=== PATIENT | male | born 1940 | race Caucasian/White ===

== ENCOUNTER → 2016-11-18 | Outpatient (CLI) | payer OTHER, MEDICARE | LOC: BHFA 13:00 | PROVIDERS: ATTEND Internal Medicine | DX: R55 Syncope and collapse (principal) ==

== ENCOUNTER → 2016-11-24 | Outpatient (CLI) | payer OTHER, MEDICARE | LOC: BHFA 15:45 | PROVIDERS: ATTEND Internal Medicine Cardiovascular Disease | DX: I48.91 Unspecified atrial fibrillation (principal); F09 Unspecified mental disorder due to known physiological condition; F07.89 Other personality and behavioral disorders due to known physiological condition; E78.5 Hyperlipidemia, unspecified; G47.30 Sleep apnea, unspecified; E11.9 Type 2 diabetes mellitus without complications ==

== ENCOUNTER → 2016-11-25 | Outpatient (CLI) | payer OTHER, MEDICARE | LOC: BHFA 14:00 | PROVIDERS: ATTEND Internal Medicine Interventional Cardiology | DX: R01.1 Cardiac murmur, unspecified (principal); R55 Syncope and collapse ==

== ENCOUNTER 2016-12-04 07:47 | Day surgery (SDC) | payer OTHER, MEDICARE ==
[2016-12-04] MEDS ORDERED: LIDOCAINE 1% 30 ML SDV MISC ONE (09:00)
--- NOTE | 2016-12-04 09:36 | SUROPNOTE ---
[facility] Operative Report - Surgery PROCEDURE: Linq implant INDICATION: Near syncope and pAF PROCEDURE DETAILS: Patient was prepped and draped in the usual sterile fashion. was present for the discussion. Consents were signed. Lidocaine was used for local anesthetic to the 2/3rd intercostal space on the left side. A small incision was made with a #12 blade, and the provided blade was used for breadth and depth. The LINQ device (SN: [id number]) was implanted without difficulty. Waveform assessment was undertaken, and good PQRST waves were noted. Patient without complaints. Minimal bleeding was noted from the site immediately following the implant (patient is therapeutic on coumadin for pAF history). Three marshall were placed to close the pocket, and will need removal in 3-5 days. Patient to have follow up on the site in 3-5 days. Instructions for data acquisition were provided to patient and .
== END 2016-12-04 09:39 | disposition home or self-care (01) ==
LOC: FCATH 07:47
PROVIDERS: ATTEND Internal Medicine Cardiovascular Disease
PROC: 0JH63PZ Insertion of Cardiac Rhythm Related Device into Chest Subcutaneous Tissue and Fascia, Percutaneous Approach (ICD-10-PCS; principal; 2016-12-04)
DX: R55 Syncope and collapse (principal); I48.91 Unspecified atrial fibrillation; I10 Essential (primary) hypertension; E11.9 Type 2 diabetes mellitus without complications; E78.5 Hyperlipidemia, unspecified
CPT/HCPCS: C1764

== ENCOUNTER → 2017-01-14 | Outpatient (CLI) | payer OTHER, MEDICARE | LOC: BHFA 11:00 | PROVIDERS: ATTEND Internal Medicine Cardiovascular Disease | DX: I48.91 Unspecified atrial fibrillation (principal) ==

== ENCOUNTER → 2017-02-04 | Outpatient (CLI) | payer OTHER, MEDICARE | LOC: BHFA 11:30 | PROVIDERS: ATTEND Internal Medicine Cardiovascular Disease | DX: I48.91 Unspecified atrial fibrillation (principal) ==

== ENCOUNTER 2017-02-18 11:37 | Observation (INO) | payer OTHER, MEDICARE ==
[2017-02-18] MEDS ORDERED: BACITRACIN IRRIGATION/NS 50,000 UNITS/1,000 ML BTL IRR ONE (12:21)
[2017-02-18] MEDS ORDERED: NS 1,000 ML IV ONE (12:21)
[2017-02-18] MEDS ORDERED: DIAZEPAM 5 MG TAB PO ONE (12:21)
[2017-02-18] MEDS ORDERED: diphenhydrAMINE 25 MG CAP PO ONE (12:21)
--- NOTE | 2017-02-18 12:51 | CPEKG ---
Heart Rate: 50 RR Interval: 1200 P-R Interval: 200 QRSD Interval: 162 QT Interval: 500 QTC Interval: 456 P [place]: 22 QRS [place]: -75 T Wave [place]: -21 EKG Severity - ABNORMAL ECG - EKG Impression: SINUS RHYTHM EKG Impression: RBBB AND LAFB EKG Impression: PROBABLE LEFT VENTRICULAR HYPERTROPHY Electronically Signed By: Stephen Ceballos 19-Feb-2017 10:13:54
[2017-02-18 13:23] LABS: % IMMATURE GRANULYOCYTES 0.2 % (0.0-1.1); ABSOLUTE IMMATURE GRANULOCYTES 0.01 10^3/uL (0.00-0.10); ADD DIFF? NO; ADD MORPH? NO; ADD SCAN? NO; ATYPICAL LYMPHOCYTE FLAG 0 (0-99); FRAGMENT RBC FLAG 0 (0-99); HEMATOCRIT 43.9 % (40.0-51.0); HEMOGLOBIN 14.5 g/dL (13.7-17.5); LEFT SHIFT FLG 0 (0-99); LIPEMIA HEMOLYSIS FLAG 80 (0-99); MEAN CELL HEMOGLOBIN 27.6 pg (27.9-34.1); MEAN CELL VOLUME 83.5 fL (81.5-99.8); PLATELET CLUMPS FLAG 0 (0-99); PLATELET COUNT 159 10^3/uL (150-400); RED BLOOD CELL COUNT 5.26 10^6/uL (4.40-6.38)
[2017-02-18 13:32] LABS: INR 1.25 (0.83-1.16); PROTIME(PATIENT) 15.7 SEC (12.0-15.0)
[2017-02-18 13:42] LABS: ANION GAP 12 mEq/L (8-16); CALCIUM 10.2 mg/dL (8.5-10.4); CARBON DIOXIDE 29 mEq/l (22-31); CHLORIDE 104 mEq/L (97-110); CREATININE 1.2 mg/dL (0.7-1.3); GLOMERULAR FILTRATION RATE 59; GLUCOSE 107 mg/dL (70-100); POTASSIUM 4.2 mEq/L (3.5-5.2); SODIUM 145 mEq/L (134-144)
[2017-02-18] MEDS ORDERED: LIDOCAINE 1% 30 ML SDV ONE ×2 (13:42→16:30)
[2017-02-18] MEDS ORDERED: BUPIVACAINE 0.5% 30 ML SDV ONE ×2 (13:42→16:30)
[2017-02-18] MEDS ORDERED: fentaNYL 100 MCG/2 ML INJ ONE ×2 (13:42→14:45)
[2017-02-18] MEDS ORDERED: MIDAZOLAM 2 MG/2 ML VIAL ONE ×2 (13:42→14:41)
[2017-02-18] MEDS ORDERED: VANCOMYCIN 1.5 GM in D5W 250 ML IV ONE (14:00)
[2017-02-18] MEDS ORDERED: LIDOCAINE 2% 100 MG/5 ML SYR ONE (14:45)
[2017-02-18] MEDS ORDERED: PROPOFOL/EMULSION 500 MG/50 ML BOTTLE IV ONE ×3 (14:45→15:56)
[2017-02-18] MEDS ORDERED: LIDOCAINE 2% JELLY 5 ML TUBE ONE (14:45)
[2017-02-18] MEDS ORDERED: LIDO/EPI 1% **for epidural** 30 ML SDV ONE (15:04)
[2017-02-18] MEDS ORDERED: PHENYLEPHRINE HCL 100 MCG/ML SYR ONE (15:38)
[2017-02-18] MEDS ORDERED: WARFARIN SODIUM 5 MG TAB PO SCH (16:30)
[2017-02-18] MEDS ORDERED: PROPOFOL 200 MG/20 ML VIAL ONE (16:33)
[2017-02-18] MEDS ORDERED: NON-FORMULARY NEW DRUG (Lovastatin [Lovastatin] 20 MG) PO SCH (17:00)
[2017-02-18] MEDS ORDERED: PRAVASTATIN SODIUM 20 MG TAB PO SCH (17:00)
[2017-02-18] MEDS: metFORMIN HCL 500 MG TAB PO SCH (19:10)
[2017-02-18] MEDS: METOPROLOL TARTRATE 25 MG TAB PO SCH (20:47)
[2017-02-18] MEDS ORDERED: TAMSULOSIN HCL 0.4 MG CAP PO SCH (21:00)
[2017-02-18] MEDS ORDERED: LISINOPRIL 20 MG TAB PO SCH (21:00)
[2017-02-18] MEDS ORDERED: INSULIN GLARGINE 100 UNITS/ML SYRINGE SC SCH (21:00)
[2017-02-18] MEDS ORDERED: SERTRALINE HCL 50 MG TAB PO SCH (21:00)
[2017-02-19 04:37] LABS: % IMMATURE GRANULYOCYTES 0.3 % (0.0-1.1); ABSOLUTE IMMATURE GRANULOCYTES 0.02 10^3/uL (0.00-0.10); ADD DIFF? NO; ADD MORPH? NO; ADD SCAN? NO; ATYPICAL LYMPHOCYTE FLAG 0 (0-99); FRAGMENT RBC FLAG 0 (0-99); HEMATOCRIT 40.5 % (40.0-51.0); HEMOGLOBIN 13.4 g/dL (13.7-17.5); LEFT SHIFT FLG 0 (0-99); LIPEMIA HEMOLYSIS FLAG 80 (0-99); MEAN CELL HEMOGLOBIN 27.7 pg (27.9-34.1); MEAN CELL HEMOGLOBIN CONCENTR. 33.1 g/dL (32.4-36.7); MEAN CELL VOLUME 83.7 fL (81.5-99.8); MEAN PLATELET VOLUME 12.3 fL (8.7-11.7); PLATELET CLUMPS FLAG 0 (0-99); PLATELET COUNT 140 10^3/uL (150-400); RED BLOOD CELL COUNT 4.84 10^6/uL (4.40-6.38)
[2017-02-19 04:54] LABS: ANION GAP 9 mEq/L (8-16); CALCIUM 9.1 mg/dL (8.5-10.4); CARBON DIOXIDE 25 mEq/l (22-31); CHLORIDE 104 mEq/L (97-110); GLOMERULAR FILTRATION RATE > 60; GLUCOSE 105 mg/dL (70-100); POTASSIUM 3.9 mEq/L (3.5-5.2); SODIUM 138 mEq/L (134-144)
[2017-02-19] MEDS: metFORMIN HCL 500 MG TAB PO SCH (06:03)
[2017-02-19 07:37] VITALS: RESP 18
[2017-02-19] MEDS: METOPROLOL TARTRATE 25 MG TAB PO SCH (08:18)
--- NOTE | 2017-02-19 08:54 | CPEKG ---
Heart Rate: 75 RR Interval: 800 P-R Interval: 132 QRSD Interval: 150 QT Interval: 432 QTC Interval: 483 P [place]: 0 QRS [place]: -95 T Wave [place]: -9 EKG Severity - ABNORMAL ECG - EKG Impression: ATRIAL-VENTRICULAR DUAL-PACED COMPLEXES EKG Impression: RBBB AND LAFB WITH TAKOTNA COMPLEXES Electronically Signed By: Stephen Wesley 19-Feb-2017 18:20:15
[2017-02-19] MEDS ORDERED: MULTIVITAMINS 1 EACH TAB PO SCH (09:00)
[2017-02-19] MEDS ORDERED: VANCOMYCIN 2 GM in D5W 500 ML IV SCH (09:00)
[2017-02-19] MEDS ORDERED: Herbals/Supplements -Info Only PO SCH (09:00)
[2017-02-19] MEDS ORDERED: LISINOPRIL 20 MG TAB PO SCH (09:00)
[2017-02-19] MEDS ORDERED: VANCOMYCIN 1.5 GM in D5W 250 ML IV ONE (09:00)
[2017-02-19 11:16] VITALS: BP 120/67; PULSE 68; TEMP 98.9; O2SAT 93
--- NOTE | 2017-02-19 11:54 | EPPROC ---
Electrophysiology Procedure Note: PROCEDURE PERFORMED: * Implantation of an A/V Pacemaker * Fluoroscopy INDICATION: This is a 76 yr old male with paroxysmal AF and conversion pauses with which the pt was symptomatic. This prevented from use of beta blockers or any other antiarrhythmics to prevent AF and hence it was decided to perform dual chamber pacemaker for this symptomatic sick sinus syndrome PROCEDURE NOTE: Patient presented to the cardiac catheterization laboratory in a fasting, post absorptive state. Cardiac grinding and polishing laborer nurse administered moderate sedation. The left infraclavicular area was prepped and draped in the usual sterile fashion. Lidocaine plus bupivacaine was used for local anesthesia. Left subclavian venography was performed by injection of iodinated contrast into the left antecubital vein. This was done to assure patency of the vein and also to assess for any anatomical aberrations. Using a combination of blunt and sharp dissection and electrocautery, the dissection was carried down to the prepectoral fascia. All bleeding was controlled with electrocautery. Fluoroscopy was utilized during the entire procedure for venous access and placement of the leads. Using the usual technique, left cephalic vein was accessed and a glidewire was placed. Through this initially a 9F and later a 7F sheath was passed. Placement of the guidewires into the venous system was confirmed by low- pressure blood return and also by visualizing the guidewires advancing into the inferior vena cava. A purse string suture was applied around the guidewires. An active fixation ventricular lead was advanced into the right ventricular apex and screwed in place. An active fixation atrial lead was advanced into the right atrial appendage and screwed in place. The peel away sheaths were removed. Pacing thresholds, sensing parameters and lead impedances were measured. There was no diaphragmatic stimulation at maximum output. The leads were sutured to the prepectoral fascia with 3 nonabsorbable sutures each. The pocket was created and it was flushed using antibiotic solution. It was inspected for any bleeding. The leads were attached to the pacemaker securely. The pacemaker was inserted into the pocket and secured in place with a nonabsorbable suture. Fluoroscopy was performed in GARCIA and PALAUAN planes to verify right-sided placement of the leads. Also fluoroscopy of the pacemaker pocket was performed. The pacemaker pocket was closed in 3 layers with absorbable vicryl sutures. Steristrips were placed. Appropriate dressing was applied. The patient left the cardiac catheterization laboratory in stable condition. Serial Numbers: * Device: ST Aneudy Assurity MRI SN [id number] * Atrial Lead: ST Aneudy 8TC SN [id number] * Ventricular Lead: ST Aneudy 8TC SN [id number] Stimulation Thresholds & Impedance Measurements: * Atrial Lead 4.7mV, 0.3@0.5ms, 598Ohms * Ventricular Lead 12.2mV, 0.5@0.5ms, 758Ohms Amado Pacing Parameters * Pacing mode: DDDR * Lower rate: 60 * Upper tracking rate: 120 * Upper sensor rate: 120
--- NOTE | 2017-02-19 13:47 | GDS ---
[f rep st] DISCHARGE SUMMARY ADMISSION DIAGNOSES: 1. Sinus pauses. 2. Symptomatic bradycardia. 3. Paroxysmal atrial fibrillation. 4. Hypertension. 5. Hyperlipidemia. 6. Diabetes type 2. DISCHARGE DIAGNOSES: 1. Sinus pauses. 2. Symptomatic bradycardia. 3. Paroxysmal atrial fibrillation. 4. Status post dual lead [employer] Aneudy permanent pacemaker implantation, with right atrium and right orly tricular lead implantation. 5. Hypertension. 6. Hyperlipidemia. 7. Diabetes type 2. PROCEDURES DONE DURING HOSPITALIZATION: 1. Electrocardiogram. 2. Pacemaker implantation [facility] Aneudy with right atrial and right ventricular leads by [employer] Aneudy. 3. Chest x-ray. 4. Loop recorder removal. BRIEF HISTORY: Please see H and P. The patient is a 76-year-old male with significant past history of paroxysmal atrial fibrillation, he has been noted to have significant pauses when he presents fr om AF to sinus rhythm which he is symptomatic. He has also been limited for rate control with his a trial fibrillation due to these pauses with the limitation of not using AV naila agents. He was see n by his primary child and family services specialist, Dr. Ceballos, who felt that he is appropriate candidate to undergo pace maker implantation. Dr. Ceballos arranged for Dr. Mejias, electrophysiology services, to perform proced ure. HOSPITAL COURSE: Patient was admitted to the CVC, prepped for procedure, and taken to the electroph ysiology suite. There, Dr. Mejias performed placing right atrial lead, right ventricular lead, and pe rmanent pacemaker can implantation with no complications. Patient was ultimately transferred back t o CVC and PCU for overnight observation. Throughout the night, his continuous cardiac monitoring biswas s shown that he has been AV paced or atrial paced with intrinsic ventricular response. Patient repo rts no chest pain, shortness of breath, lightheadedness, near-syncope, or syncopal events. He has b een up and walking the unit without any difficulties. PHYSICAL EXAMINATION: Today: GENERAL APPEARANCE: Tall, well-groomed male. He is alert and oriented to person, place, time, and situation. Appears to be under no acute distress. VITAL S IGNS: Current vital signs are blood pressure of 120/67, heart rate at 68 beats per minute, respirat ions 18, saturating 93% on room air, temperature of 37.2 degrees Celsius. HEENT: Head is normoceph alic. Lips and tongue are pink and moist with no signs of cyanosis. Conjunctivae pink. NECK: Tra gloria is midline, +2 carotid pulses bilateral. No auscultated bruits, no jugular vein distention. R ESPIRATORY: Lungs clear to auscultation, no rhonchi, rales or wheezes. No accessory muscle use, no intercostal muscle retraction noted. CARDIAC: Regular rate, regular rhythm, S1, S2, no S3, S4, ru bs, or murmur noted. ABDOMEN: Soft, nontender, bowel sounds x4 quadrants, no organomegaly, no palp able masses. SKIN: [place], warm, dry, no cyanosis, no clubbing, no peripheral edema. PACEMAKER INSE RTION SITE: Left anterior chest just distal to clavicle, incision intact with Steri-Strips. No red ness, swelling, drainage, ecchymosis, or hematoma. Dressing change done at this time. LOOP RECORDE R REMOVAL INSERTION SITE: Left anterior chest just lateral to sternum, dressing intact. No redness , swelling, or drainage. NEURO: Cranial nerves 2-12 grossly intact. DISCHARGE LABORATORY STUDIES: Laboratory studies done today show WBC of 7.68, hemoglobin of 13.4, h ematocrit of 40.3, platelet count of 140, sodium 138, potassium 3.9, chloride 104, CO2 of 25, BUN 17 , creatinine 1.0, glucose 105, calcium 9.1. PROCEDURES: 1. Please see above for pacemaker implantation. 2. Loop recorder removal: Loop recorder was removed prior to pacemaker implantation, no complicati ons. 3. Chest x-ray today shows no acute cardiopulmonary process, no pneumothorax, pacemaker interrogati on, pacemaker interrogation by [employer] Aneud[employer] rep showing device functioning within normal limits. 4. Electrocardiogram: Electrocardiogram today shows AV paced. DISCHARGE DISPOSITION: Patient will be discharged home in fair condition. He is under activity res trictions of not lifting more than 10 pounds with the left arm for the next week or raising it above shoulder height and no strenuous activity for the next 2 weeks. DISCHARGE MEDICATIONS: Please see discharge medication reconciliation sheet. Note that patient was initially started on metoprolol, but due to history of hypertension, we have switched him over to c arvedilol. Also noted that patient's reported he has been taking lisinopril 40 mg in the morni ng and 20 mg in the afternoon. Recently he started developing a cough, so we will discontinue his e vening dose of lisinopril making him only have it at 40 mg once a day. Patient is on warfarin. INR yesterday was 1.25. He has been resuming his normal home INRs, and he has a followup appointment [facility] set for Thursday, no bridging necessary per Dr. Mejias. DISCHARGE INSTRUCTIONS: Post pacemaker implantation/loop recorder removal. Instructions went over with the patient and his , including monitoring for signs of infection, activity restrictions, m edication compliance. They both verbalized understanding. Patient has a followup appointment set or February 25 at 2 p.m. for a device and wound check, he has an [facility]R check with [facility] at 10:30 a.m. on February 23, and he has a followup appointment with his primary child and family services specialist, Dr. Ceballos, on March 20 at 2:15 p.m. Also, since he did receive IV contrast during his procedure, he has been ask ed to not restart his metformin until Thursday. Patient and verbalized understanding a ll discharge instructions, have no questions or concerns at this time. They were told that if any p roblems or concerns post discharge, they are to contact the clinic or return to the hospital. Total time spent on discharge greater than 30 minutes. /[id number]/MODL
[2017-02-19] MEDS ORDERED: WARFARIN SODIUM 5 MG TAB PO SCH (16:14)
[2017-02-19] MEDS ORDERED: CARVEDILOL 6.25 MG TAB PO SCH (18:00)
== END 2017-02-19 14:30 | disposition home or self-care (01) ==
LOC: FCATH 11:37 → F2W 16:13
PROVIDERS: ADMIT Internal Medicine Cardiovascular Disease; ATTEND Internal Medicine Cardiovascular Disease
DX: I45.5 Other specified heart block (principal); I49.5 Sick sinus syndrome; I10 Essential (primary) hypertension; E78.5 Hyperlipidemia, unspecified; E11.9 Type 2 diabetes mellitus without complications; Z79.01 Long term (current) use of anticoagulants
CPT/HCPCS: 33208; 71020; 93005; C1769; C1785; C1898; J1815; J2001; J2250; J2370; J2704; J3010; J3370

== ENCOUNTER → 2017-09-18 | Outpatient (CLI) | payer OTHER, MEDICARE | LOC: CIMAGING 14:05 | PROVIDERS: ATTEND Psychiatry & Neurology Neurology | DX: R26.9 Unspecified abnormalities of gait and mobility (principal); R93.0 Abnormal findings on diagnostic imaging of skull and head, not elsewhere classified | CPT/HCPCS: 70450-PO ==